=== PATIENT | female | born 1960 | race Caucasian/White ===

== ENCOUNTER → 2019-01-18 | Outpatient (REF) | payer BC ==
[2019-01-18 19:07] LABS: AMYLASE 44 U/L (25-115); LIPASE 169 U/L (73-393)
[2019-01-18 19:19] LABS: H PYLORI QUALITATIVE IgG DETECTED (NEGATIVE)
== END ==
LOC: M LAB REF 17:40
PROVIDERS: ATTEND Nurse Practitioner Adult Health
DX: R10.13 Epigastric pain (principal)

== ENCOUNTER → 2019-03-14 | Outpatient (CLI) | payer BC ==
[2019-03-14 17:01] LABS: FOLLICLE STIMULATING HORMONE 50.3 mIU/mL
== END ==
LOC: M LAB 16:02
PROVIDERS: ATTEND Obstetrics & Gynecology
DX: N92.6 Irregular menstruation, unspecified (principal)

== ENCOUNTER 2019-05-09 09:58 | Day surgery (SDC) | payer BC ==
[~2019-05-09] VITALS: Ht 157.5 cm; Wt 66.3 kg
[~2019-05-09 09:58] MED LIST: ALBU83IN INH; LR 1,000 ML IV ONE
[2019-05-09] MEDS ORDERED: dexameTHASONE 4 MG/ML 1ML VIAL (J1100) As Ordered ONE (11:11)
[2019-05-09] MEDS ORDERED: ONDANSETRON 4MG/2ML VIAL (J2405) As Ordered ONE (11:11)
[2019-05-09] MEDS ORDERED: PROPOFOL 200 MG/20 ML VIAL As Ordered ONE (11:11)
[2019-05-09] MEDS ORDERED: LIDOCAINE 2% INJ 100 MG/5 ML SDV (FOR ANES.) As Ordered ONE (11:11)
[2019-05-09] MEDS ORDERED: KETOROLAC 60 MG/2 ML VIAL (J1885) As Ordered ONE (11:12)
[2019-05-09] MEDS ORDERED: MIDAZOLAM INJ 2 MG/2 ML VIAL (J2250) As Ordered ONE (11:15)
[2019-05-09] MEDS ORDERED: fentaNYL 100 MCG/2 ML INJECTION (J3010) As Ordered ONE (11:15)
[2019-05-09] MEDS ORDERED: SCOPOLAMINE 1MG TRANSDERMAL PATCH As Ordered ONE (13:15)
[2019-05-09] MEDS ORDERED: SCOPOLAMINE 1MG TRANSDERMAL PATCH TOP ONE (13:30)
[2019-05-09] MEDS ORDERED: LR 1,000 ML IV ONE (13:30)
[2019-05-09] MEDS ORDERED: fentaNYL 250 MCG/5 ML INJECTION (J3010) As Ordered ONE (13:40)
[2019-05-09] MEDS ORDERED: fentaNYL 100 MCG/2 ML INJECTION (J3010) IV PRN (14:15)
[2019-05-09] MEDS ORDERED: IBUPROFEN 600 MG TAB PO PRN (14:15)
[2019-05-09] MEDS ORDERED: ONDANSETRON 4MG/2ML VIAL (J2405) IV PRN (14:15)
[2019-05-09] MEDS ORDERED: LR 1,000 ML IV SCH ×2 (14:15)
[2019-05-09 15:45] VITALS: BP 164/74
--- NOTE | 2019-05-10 11:20 | RO ---
DATE OF SURGERY: 05/09/2019 PREOPERATIVE DIAGNOSES/INDICATION FOR SURGERY: Postmenopausal bleeding and abnormal sonogram. POSTOPERATIVE DIAGNOSES: Postmenopausal bleeding and abnormal sonogram. PROCEDURE: Dilation and curettage (D and C), hysteroscopy, MyoSure resection. We took all of that out. SURGEON: Ghazal Langley MD POWER ELECTRONICS RESEARCH ENGINEER: None. ANESTHESIA: Laryngeal mask airway (LMA). FINDINGS: She just had minimal overgrowth posterior endometrium. DESCRIPTION OF PROCEDURE: Brief description of procedure and findings: Lilly was brought to the operating room, where sufficient LMA anesthesia was induced. She was prepped, draped, and positioned in the usual sterile fashion, and the cervix grasped with single-tooth tenaculum. Thus, uterus would be accessible from below should that become necessary in the future. Of course, the bladder had already been emptied. The cervix was dilated in order to allow introduction of the MyoSure hysteroscope, and the endometrial cavity visualized. As noted on the operative photos, there were not any large polyps, but there was sort of a broad-based, slight overgrowth of the endometrium posteriorly, and of course, in this 58-year-old individual, we do not expect any endometrial growth, so we did use the MyoSure LITE to just resect all of that and, of course, to do a 360 degree sampling of the endometrium. Curettage was carried out after this with normal uterine cry noted. Then, the procedure was then ended. ESTIMATED BLOOD LOSS FOR PROCEDURE: 3 mL. FLUID REPLACEMENT: Was crystalloid. COMPLICATIONS: None. CONDITION AND DISPOSITION: Lilly tolerated the procedure well and was recovering in the recovery room in good condition.
== END 2019-05-09 15:50 | disposition home or self-care (01) ==
LOC: M SDC 09:58
PROVIDERS: ATTEND Obstetrics & Gynecology
DX: N95.0 Postmenopausal bleeding (principal); J45.909 Unspecified asthma, uncomplicated; Z79.51 Long term (current) use of inhaled steroids; Z91.09 Other allergy status, other than to drugs and biological substances
CPT/HCPCS: 58558; 88304; J1100; J1885; J2250; J2405; J3010

== ENCOUNTER 2019-08-29 08:23 | Day surgery (SDC) | payer BC ==
[~2019-08-29] VITALS: Ht 160 cm; Wt 68.9 kg
[2019-08-29] VITALS (7 sets, daily range): BP systolic 119–148; BP diastolic 63–74
[2019-08-29] MEDS: LR 1,000 ML IV SCH ×2 (03:00→18:34)
[~2019-08-29 08:23] MED LIST changes: +MIDAZOLAM INJ 2 MG/2 ML VIAL (J2250) IV SCH; +VENTAER INH; +ceFAZolin SOD 2 GM in IV 1 EA IV ONE; +fentaNYL 100 MCG/2 ML INJECTION (J3010) IV SCH
[2019-08-29] MEDS ORDERED: PROPOFOL 200 MG/20 ML VIAL As Ordered ONE ×3 (08:28→11:21)
[2019-08-29] MEDS ORDERED: ROCURONIUM BROMIDE 50 MG/5 ML VIAL As Ordered ONE (08:28)
[2019-08-29] MEDS ORDERED: LIDOCAINE 2% INJ 100 MG/5 ML SDV (FOR ANES.) As Ordered ONE ×2 (08:29→09:47)
[2019-08-29] MEDS ORDERED: ONDANSETRON 4MG/2ML VIAL (J2405) As Ordered ONE (08:29)
[2019-08-29] MEDS ORDERED: SUGAMMADEX SODIUM 500 MG/5 ML VIAL (BRIDION) As Ordered ONE (08:29)
[2019-08-29] MEDS ORDERED: KETOROLAC 60 MG/2 ML VIAL (J1885) As Ordered ONE (08:29)
[2019-08-29] MEDS ORDERED: dexameTHASONE 4 MG/ML 1ML VIAL (J1100) As Ordered ONE (08:29)
[2019-08-29] MEDS ORDERED: MIDAZOLAM INJ 2 MG/2 ML VIAL (J2250) As Ordered ONE (08:30)
[2019-08-29] MEDS ORDERED: fentaNYL 100 MCG/2 ML INJECTION (J3010) As Ordered ONE (08:30)
[2019-08-29] MEDS ORDERED: KETAMINE HCL 200 MG/20 ML VIAL As Ordered ONE (08:30)
[2019-08-29] MEDS ORDERED: HYDROmorphone HCL 2 MG/ML 1ML VIAL (J1170) As Ordered ONE (08:43)
[2019-08-29] MEDS ORDERED: ACETAMINOPHEN 1000MG 100ML IV BTL (OFIRMEV) (J0131 PER 10MG) As Ordered ONE (08:50)
[2019-08-29 09:02] LABS: HEMATOCRIT 42.4 % (36.0-47.0); HEMOGLOBIN 13.7 g/dl (12.0-15.5); MEAN CORPUSCULAR HEMOGLOBIN 29.5 pg (27.0-33.0); MEAN CORPUSCULAR HGB CONC 32.3 g/dl (32.0-36.5); MEAN CORPUSCULAR VOLUME 91.4 fl (80.0-96.0); PLATELET COUNT, AUTOMATED 334 10^3/uL (150-450); RED BLOOD COUNT 4.64 10^6/uL (4.00-5.40); WHITE BLOOD COUNT 6.8 10^3/uL (4.0-10.0)
[2019-08-29] MEDS ORDERED: SCOPOLAMINE 1MG TRANSDERMAL PATCH As Ordered ONE (09:42)
[2019-08-29] MEDS ORDERED: PROPOFOL 500 MG/50 ML VIAL As Ordered ONE (09:47)
[2019-08-29] MEDS ORDERED: SCOPOLAMINE 1MG TRANSDERMAL PATCH TOP ONE (10:00)
[2019-08-29] MEDS ORDERED: MORPHINE 1MG/ML IN 0.9% NACL 100ML IV BAG As Ordered ONE (12:26)
[2019-08-29] MEDS ORDERED: IBUPROFEN 600 MG TAB PO PRN (12:30)
[2019-08-29] MEDS ORDERED: NALBUPHINE HCL 10 MG/ML AMP (J2300) IV PRN (12:30)
[2019-08-29] MEDS ORDERED: fentaNYL 100 MCG/2 ML INJECTION (J3010) IV PRN (12:30)
[2019-08-29] MEDS ORDERED: diphenhydrAMINE INJ 50MG/ML VIAL (J1200) IV PRN (12:30)
[2019-08-29] MEDS ORDERED: LR 1,000 ML IV SCH (12:30)
[2019-08-29] MEDS ORDERED: MORPHINE 1MG/ML IN 0.9% NACL 100ML IV BAG IV PRN (12:30)
[2019-08-29] MEDS ORDERED: NALOXONE INJ 0.4 MG/1 ML VIAL (J2310) IV PRN (12:30)
[2019-08-29] MEDS ORDERED: ONDANSETRON 4MG/2ML VIAL (J2405) IV PRN (12:30)
[2019-08-29] MEDS ORDERED: EPIDURAL/PCA KEYS XX PRN (12:30)
[2019-08-29] MEDS ORDERED: ALBUTEROL 90 MCG/ACT 8GM HFA INHALER INH PRN (12:30)
--- NOTE | 2019-08-29 15:38 | RO ---
DATE OF SURGERY: 08/29/2019 PREOPERATIVE DIAGNOSES/INDICATION FOR SURGERY: Pain, bleeding, and dyspareunia. POSTOPERATIVE DIAGNOSES: Pain, bleeding, and dyspareunia, with fibroid found. PROCEDURE: Laparoscopic-assisted vaginal hysterectomy, bilateral salpingo-oophorectomy (BSO). SURGEON: Ghazal Langley MD CNC SERVICE TECHNICIAN: None. ANESTHESIA: General endotracheal anesthesia. DESCRIPTION OF PROCEDURE: Brief description of procedure and findings: Lilly was brought to the operating room, where sufficient general endotracheal anesthesia was induced. She was prepped, draped, and positioned in the usual sterile fashion with the uterus sounded to 8 and the uterine manipulator placed, and the Light with the ability to backfill placed. We then turned our attention to the abdomen, where a semilunar incision was made below the umbilicus, and sharp and blunt dissection continued to the level of the rectus fascia, which was grasped with Jazmín clamps, elevated to the wound, transversely incised under direct visualization and secured with #0 Vicryl suture. The peritoneum was then entered under direct visualization, and the Wendy cannula placed into the peritoneal cavity, under direct visualization in an open laparoscopic technique. The #0 Vicryl tension sutures were used to secure the Wendy and CO2 insufflation was then begun. After adequate CO2 insufflation, the peritoneal cavity was visualized. There were normal, shiny peritoneal surfaces throughout. There was no excrescence, ascites, nor exudate. There were some minor adhesions of the descending colon, but with the cold scissors, we were able to take these down well enough to do the case, and they were not distorting the colon in any way. Using the cold scissors, we just loosened those and then leaned the patient slightly to the right side dependent and Trend and we were thus able to get adequate access to the left infundibulopelvic ligament, which, using the #45 Enseal and the operative port at the scope at the umbilicus, we were able to isolate the infundibulopelvic on the right side, cauterize, and transect it, carefully dissecting with the Enseal bipolar dissector, working our way through the mesentery to the round ligament, being careful to avoid injury to the ureter. We dissected the tube and ovary free as well as the round ligament, and then at the beginning of the dissection of broad ligament, we were able to backfill the Light to be sure that we were well away from bladder with this dissection. We then brought the patient back to left and right level but still in Trendelenburg and were able to isolate, cauterize, and transect the infundibulopelvic ligament on the right side, working our way again through the broad ligament to the round, which we also cauterized and transected and then the superior aspect of the anterior broad ligament. We then used cold scissors to create the bladder flap and, having dissected the broad ligament, the round, the infundibulopelvic, and the bladder flap, we went ahead and turned our attention to the pelvic part of the surgery. The instruments were removed, but the trocar left in place at the umbilicus, and attention was turned to the vagina. Working vaginally with the uterine manipulator removed, we had a single-tooth tenaculum on the anterior-posterior aspect of the cervix, and a circumferential incision was made around the base of the cervix, and the dissection was continued until we had isolated the cardinal ligaments bilaterally. These were clamped, transected, and ligated using the Watson clamp, which was used throughout, the SuperCut scissors, and then #0 Vicryl suture, which was also used throughout. We then clamped, transected, and ligated the uterosacral ligaments, which were secured for later attachment to the cuff, and entered the peritoneal cavity posteriorly and then switched out the weighted speculum for the Viji speculum. We then continued the dissection anteriorly to meet up with our previous anterior dissection that we had done laparoscopically and isolated the uterine vasculature bilaterally, carefully clamping, transecting, and ligating in a sequential fashion around the lateral aspect of the uterus until the we joined up with our previous dissection and delivered the uterus with the attached ovaries and tubes. Then evaluated our pedicles, which were dry, of course, angle stitches, re-securing the uterosacrals to the cuff, and then closed the cuff in a running lock stitch with #0 Vicryl with good approximation and hemostasis achieved at each layer. Then, since we had good hemostasis, we went ahead with new gloves and removed the Wendy from the umbilicus, used the retention sutures to close the fascial layer, and then closed the skin in #3-0 Vicryl in a subcuticular stitch with good approximation and hemostasis at both layers, and dry, sterile dressing was then applied. ESTIMATED BLOOD LOSS FOR PROCEDURE: About 70 mL. FLUID REPLACEMENT: Was crystalloid. COMPLICATIONS: None. CONDITION/DISPOSITION: Lilly tolerated the procedure well and was recovering in the recovery room in good condition.
[2019-08-30] VITALS: BP 133/63
[2019-08-30 04:00] VITALS: BP 130/65
[2019-08-30] MEDS ORDERED: NORCO, ANEXSIA 5/325MG TABLET (HYDROcodone/ACETAMINOPHEN) PO PRN (06:00)
[2019-08-30 06:46] LABS: HEMATOCRIT 32.2 % (36.0-47.0); MEAN CORPUSCULAR HEMOGLOBIN 29.8 pg (27.0-33.0); MEAN CORPUSCULAR HGB CONC 33.2 g/dl (32.0-36.5); MEAN CORPUSCULAR VOLUME 89.7 fl (80.0-96.0); PLATELET COUNT, AUTOMATED 250 10^3/uL (150-450); RED BLOOD COUNT 3.59 10^6/uL (4.00-5.40); WHITE BLOOD COUNT 11.7 10^3/uL (4.0-10.0)
[2019-08-30] MEDS: LR 1,000 ML IV SCH (06:52)
[2019-08-30 06:59] LABS: HEMOGLOBIN 10.7 g/dl (12.0-15.5)
[2019-08-30 08:00] VITALS: BP 126/63
== END 2019-08-30 10:15 | disposition home or self-care (01) ==
LOC: M SDC 08:23 → M PED 13:03 → M SDC 08-30 10:15
PROVIDERS: ATTEND Obstetrics & Gynecology
DX: N93.9 Abnormal uterine and vaginal bleeding, unspecified (principal); N94.10 Unspecified dyspareunia; D25.1 Intramural leiomyoma of uterus; R73.09 Other abnormal glucose; E55.9 Vitamin D deficiency, unspecified; D18.09 Hemangioma of other sites; M12.9 Arthropathy, unspecified; J45.909 Unspecified asthma, uncomplicated; R06.83 Snoring; M50.220 Other cervical disc displacement, mid-cervical region, unspecified level; Z91.09 Other allergy status, other than to drugs and biological substances; Z91.018 Allergy to other foods; Z78.0 Asymptomatic menopausal state; Z80.0 Family history of malignant neoplasm of digestive organs
CPT/HCPCS: 36415; 58552; 85027; 86850; 86900; 86901; 88307; J0131; J0690; J1100; J1170; J1885; J2250; J2405; J3010

== ENCOUNTER 2020-01-07 11:51 | Emergency (ER) | payer BC ==
[~2020-01-07] VITALS: Ht 157.5 cm; Wt 67.3 kg
[~2020-01-07 11:51] MED LIST changes: -LR 1,000 ML IV ONE; -MIDAZOLAM INJ 2 MG/2 ML VIAL (J2250) IV SCH; -ceFAZolin SOD 2 GM in IV 1 EA IV ONE; -fentaNYL 100 MCG/2 ML INJECTION (J3010) IV SCH
[2020-01-07] MEDS ORDERED: IBUP-1022 (11:56)
[2020-01-07] MEDS ORDERED: methocarbamoL 500 MG TAB PO ONE (12:30)
[2020-01-07] MEDS ORDERED: KETOROLAC 60 MG/2 ML VIAL (J1885) IM ONE (13:00)
--- NOTE | 2020-01-07 13:08 | REP ---
Clinical: Trauma. Injury. Technique: Frontal view of the pelvis with neutral and frog lateral views of the right hip. Findings: Generalized age-related changes to the pelvis and hips. No acute fracture or dislocation. Surrounding soft tissues are unremarkable. Impression: No acute fracture or dislocation. Electronically Signed by Mark Chua MD 01/07/2020 01:00 P
--- NOTE | 2020-01-07 13:10 | REP ---
Clinical: Injury. Technique: AP, lateral, bilateral oblique and coned-down views of the lumbosacral spine. Findings: Alignment and lordosis maintained. No acute fracture / compression injury or subluxation. Moderate degenerative changes primarily involving L4-5 and L5-S1 including endplate sclerosis, disc space narrowing, mild spurring and hypertrophic facet changes. Mild changes noted throughout the remainder of the lumbar spine with minimal anterior spurring and endplate sclerosis. Impression: Mild/moderate multilevel degenerative changes primarily involving L4-5 and L5-S1. No acute fracture / compression injury or subluxation. Electronically Signed by Mark Chua MD 01/07/2020 01:02 P
[2020-01-07 13:14] VITALS: BP 148/67
[2020-01-07] MEDS ORDERED: ROBA750T4 PO (13:42)
[2020-01-07] MEDS ORDERED: KETO10TAB PO (13:42)
== END 2020-01-07 14:03 | disposition home or self-care (01) ==
LOC: M ED 11:51
DX: S39.012A Strain of muscle, fascia and tendon of lower back, initial encounter (principal); X58.XXXA Exposure to other specified factors, initial encounter; Y92.89 Other specified places as the place of occurrence of the external cause; J45.909 Unspecified asthma, uncomplicated; Z78.0 Asymptomatic menopausal state
CPT/HCPCS: 72110; 73502; 96372; 99283; J1885

== ENCOUNTER 2020-03-18 11:41 | Emergency (ER) | payer BC ==
[~2020-03-18] VITALS: Ht 157.5 cm; Wt 67.2 kg
[~2020-03-18 11:41] MED LIST changes: +IBUP-1022; +KETO10TAB PO; +ROBA750T4 PO
[2020-03-18] MEDS ORDERED: ACETAMINOPHEN 325 MG TAB PO ONE (12:15)
[2020-03-18 12:51] LABS: BASO # 0.1 10^3/uL (0.0-0.2); BASO % 0.9 % (0.0-1.0); EOS # 0.6 10^3/uL (0.0-0.5); EOS % 9.2 % (0.0-3.0); HEMATOCRIT 39.2 % (36.0-47.0); HEMOGLOBIN 12.8 g/dl (12.0-15.5); LYMPH # 2.1 10^3/uL (1.5-5.0); LYMPH % 31.3 % (24.0-44.0); MEAN CORPUSCULAR HEMOGLOBIN 29.1 pg (27.0-33.0); MEAN CORPUSCULAR HGB CONC 32.7 g/dl (32.0-36.5); MEAN CORPUSCULAR VOLUME 89.1 fl (80.0-96.0); MONO # 0.6 10^3/uL (0.0-0.8); MONO % 8.5 % (0.0-5.0); NEUTROPHILS # 3.4 10^3/uL (1.5-8.5); PLATELET COUNT, AUTOMATED 337 10^3/uL (150-450); WHITE BLOOD COUNT 6.7 10^3/uL (4.0-10.0)
[2020-03-18 13:00] VITALS: BP 173/94
--- NOTE | 2020-03-18 13:10 | REPVR ---
PROCEDURE INFORMATION: Exam: CT Head Without Contrast Exam date and time: 03/18/2020 12:28 PM Age: 59 years old Clinical indication: Pain; Headache not specified; Additional info: ALEXIS TECHNIQUE: Imaging protocol: Computed tomography of the head without contrast. Radiation optimization: All CT scans at this facility use at least one of these dose optimization techniques: automated exposure control; mA and/or kV adjustment per patient size (includes targeted exams where dose is matched to clinical indication); or iterative reconstruction. COMPARISON: No relevant prior studies available. FINDINGS: Brain: No hemorrhage. Unremarkable white matter for the patient's age. No mass effect. No evolving territorial infarct. Ventricles: No ventriculomegaly. Bones/joints: Unremarkable. No acute fracture. Sinuses: Visualized sinuses are unremarkable. No fluid levels. Mastoid air cells: Visualized mastoid air cells are well aerated. Soft tissues: Unremarkable. IMPRESSION: No acute intracranial abnormality seen. Electronically signed by: Beronica Robb On 03/18/2020 13:09:56 PM
[2020-03-18 13:16] LABS: ALBUMIN 4.2 GM/DL (3.2-5.2); ALT/SGPT 24 U/L (12-78); BILIRUBIN,DIRECT 0.1 MG/DL (0.0-0.2); BILIRUBIN,TOTAL 0.4 MG/DL (0.2-1.0); CK-MB VALUE MASS < 1.0 NG/ML (<3.6); CPK CREATINE PHOSPHOKINASE 62 U/L (26-192); FREE T4 1.25 NG/DL (0.76-1.46); MB/CK RELATIVE INDEX 1.61 (< OR =4); THYROID STIMULATING HORMONE 0.858 uIU/ML (0.358-3.740); TOTAL PROTEIN 7.4 GM/DL (6.4-8.2); TROPONIN I < 0.02 NG/ML (< 0.10)
--- NOTE | 2020-03-18 13:22 | REP ---
CHEST: Single view. There is no evidence of acute infiltrate. No pleural effusion is seen. The heart is normal in size. The mediastinal silhouette is unremarkable. The visualized osseous structures are intact. IMPRESSION: No acute pulmonary disease. Electronically Signed by Serge Allen MD 03/19/2020 07:06 P
[2020-03-18 13:26] LABS: ERYTHROCYTE SEDIMENTATION RATE 10 mm/hr (0-30)
[2020-03-18] MEDS ORDERED: ISOVUE-370 76% 100ML VIAL As Ordered ONE (13:27)
--- NOTE | 2020-03-18 14:12 | REP ---
REASON FOR EXAM: Left-sided chest pain. COMPARISON EXAM: None. CONTRAST: 100 mL Isovue-370. There is excellent visualization of the pulmonary arterial vasculature. There are no focal filling defects present that would be considered consistent with pulmonary emboli. There are no pleural or pericardial effusions. There is no mediastinal or hilar adenopathy. The imaged upper abdomen and imaged osseous structures are within normal limits. Evaluation of the lung klein shows a 7-mm sized nodule in the superior segment of the left lower lobe abutting the major fissure. No other abnormal nodules, masses, or opacities are present. IMPRESSION: 1. There is no evidence of a pulmonary embolus. 2. Single pulmonary nodule left lung, as described above. According to the revised Fleischner Society criteria, this lesion represents a category 4A lesion for which a 3-month followup chest CT is recommended. Electronically Signed by Javier Saunders DO 03/18/2020 03:22 P
[2020-03-18 15:35] LABS: CK-MB VALUE MASS < 1.0 NG/ML (<3.6); CPK CREATINE PHOSPHOKINASE 56 U/L (26-192); MB/CK RELATIVE INDEX 1.79 (< OR =4); TROPONIN I < 0.02 NG/ML (< 0.10)
[2020-03-18 15:46] VITALS: BP 128/69
[2020-03-18] MEDS ORDERED: LISI10TA22 PO (15:51)
--- NOTE | 2020-03-18 18:47 | ECGEPIP ---
[facility] - ED Test Date: 2020-03-18 Pat Name: KELLE DEL ANGEL Department: Room: - Gender: Female Personal Counselor: aguilar SAWYERB: 1960 Requested By: Ankush Osorio Order Number: [id number] Reading MD: Ankush Osorio Measurements Intervals Leary Rate: 61 P: 30 AK: 152 QRS: 15 QRSD: 98 T: 37 QT: 414 QTc: 420 Interpretive Statements SINUS RHYTHM NONSPECIFIC ST T WAVE CHANGES NO PRIOR ECG FOR COMPARISON Electronically Signed on 03-18-2020 18:47:33 EDT by Ankush Osorio
--- NOTE | 2020-03-18 19:21 | ECGEPIP ---
[facility] - ED Test Date: 2020-03-18 Pat Name: KELLE DEL ANGEL Department: Room: - Gender: Female Melter Operator: aguilar SAWYERB: 1960 Requested By: Ankush Osorio Order Number: [id number] Reading MD: Ankush Osorio Measurements Intervals Woodrow Rate: 55 P: 49 VT: 181 QRS: 19 QRSD: 84 T: 41 QT: 415 QTc: 399 Interpretive Statements SINUS BRADYCARDIA DELAYED R WAVE PROGRESSION NONSPECIFIC ST T WAVE CHANGES CW 03/18/[address] T WAVE CHANGES Electronically Signed on 03-18-2020 19:21:33 EDT by Ankush Osorio
--- NOTE | 2020-03-20 14:08 | ED PDOC ---
Post-Departure Follow-Up dr muller faxed formal report of cta chest for fu Ankush Flores MD Mar 20, 2020 14:08
== END 2020-03-18 16:14 | disposition home or self-care (01) ==
LOC: M ED 11:41
DX: I10 Essential (primary) hypertension (principal); R91.1 Solitary pulmonary nodule; R07.9 Chest pain, unspecified; R00.1 Bradycardia, unspecified; Z87.891 Personal history of nicotine dependence; Z91.018 Allergy to other foods; J30.89 Other allergic rhinitis
CPT/HCPCS: 36415; 70450; 71045; 71275; 80047; 80076; 82375; 82550; 82553; 84439; 84443; 84484; 85025; 85652; 93005; 93041; 94760; 99285; Q9967

== ENCOUNTER → 2020-04-28 | Outpatient (CLI) | payer BC ==
[~2020-04-28] MED LIST changes: +LISI10TA4 PO
--- NOTE | 2020-04-28 14:58 | REPVR ---
PROCEDURE INFORMATION: Exam: MR Cervical Spine Without Contrast Exam date and time: 04/28/2020 10:51 AM Age: 59 years old Clinical indication: Condition or disease; Disc degeneration; Vertebra area not specified; Additional info: Cervical ddd ? hnp vs stenosis TECHNIQUE: Imaging protocol: Multiplanar magnetic resonance images of the cervical spine without contrast. COMPARISON: No relevant prior studies available. FINDINGS: Vertebrae: There is straightening of the midcervical lordosis. Trace 1-2 mm of anterolisthesis of C3 on C4 and C7 on T1, likely degenerative. Trace 1-2 mm of degenerative retrolisthesis of C5 on C6. No acute fracture seen. Spinal cord: Normal signal. No cord compression. There is disc desiccation throughout. Disc height loss and spondylosis is moderate to marked from C4-C5 through C6-C7. Endplate inflammation at C5-C6 and C6-C7 is likely degenerative. C2-C3: Mild facet arthropathy. No stenoses. C3-C4: Mild facet arthropathy. No stenoses. C4-C5: Mild disc osteophyte complex. There is a shallow component of right paracentral soft disc protrusion. Central spinal canal stenosis is mild. Uncovertebral and facet arthropathy causing moderate right and mild left neural foraminal stenoses. C5-C6: Retrolisthesis, disc osteophyte complex and ligamentum flavum buckling causing moderate central spinal canal stenosis. Uncovertebral and facet arthropathy causing moderate left and mild to moderate right neural foraminal stenoses. C6-C7: Disc osteophyte complex and ligamentum flavum buckling causing mild central spinal canal stenosis. Uncovertebral and facet arthropathy causing severe left and [id number] right neural foraminal stenoses. C7-T1: Uncovertebral and facet arthropathy, in particular left facet arthropathy. The central spinal canal remains patent. No significant foraminal stenoses. Marrow: 3 mm STIR hyperintense, T1 hypointense lesion in the right aspect of T1, nonspecific, potentially a bone cyst or atypical hemangioma. A few small cystic foci in C6, potentially degenerative. Vertebral arteries: Expected flow voids in the vertebral arteries. Soft tissues: Left periarticular soft tissue edema at C7-T1, probably degenerative related to advanced facet arthropathy. IMPRESSION: 1. Advanced degenerative disc disease from C4-C5 through C6-C7. 2. Mild central spinal canal stenosis at C4-C5. Moderate right neural foraminal stenosis. 3. Moderate central spinal canal stenosis at C5-C6. Moderate left and [id number] right neural foraminal stenoses. 4. Mild central spinal canal stenosis at C6-C7. Severe left and [id number] right neural foraminal stenoses. 5. Severe left facet arthropathy at C7-T1 with periarticular soft tissue edema. Electronically signed by: Beronica Robb On 04/28/2020 14:57:50 PM
== END ==
LOC: M RAD 10:05
PROVIDERS: ATTEND Physician Assistant
DX: M50.323 Other cervical disc degeneration at C6-C7 level (principal); M50.322 Other cervical disc degeneration at C5-C6 level; M25.78 Osteophyte, vertebrae; M48.02 Spinal stenosis, cervical region

== ENCOUNTER → 2020-12-25 | Outpatient (CLI) | payer BC ==
[~2020-12-25] MED LIST changes: +LISI10TA22 PO; -LISI10TA4 PO
--- NOTE | 2020-12-25 13:44 | REP ---
INDICATION: SOLITARY PUMONARY NODULE COMPARISON: None TECHNIQUE: Axial noncontrast images from the thoracic inlet to the upper abdomen with coronal and sagittal reformations. This CT examination was performed using the following dose reduction techniques: Automated exposure control, adjustment of mA and/or kv according to the patient's size, and use of iterative reconstruction technique. FINDINGS: Bilateral lung klein are relatively well aerated and symmetric. Calcified granuloma and chronic changes consistent with prior granulomatous disease. 7 mm perifissural nodule density inseparable from the left major fissure remains stable. No consolidation, suspicious nodule or mass lesion otherwise appreciated. No pleural effusion. No pneumothorax. Tracheobronchial tree is patent. Stable mediastinal lymph nodes noted. Thoracic aorta, pulmonary vasculature, and heart/pericardium are within normal limits. Musculoskeletal structures without acute osseous abnormality. IMPRESSION: 1. Evidence for prior granulomatous disease. 2. Stable 7 mm noncalcified perifissural nodule along the left major fissure. Consider 12 month follow-up for high risk patient category. <Electronically signed by Mark Chua > 12/25/20 [id number]
== END ==
LOC: M RAD 13:11
PROVIDERS: ATTEND Internal Medicine Pulmonary Disease
DX: R91.1 Solitary pulmonary nodule (principal); L92.9 Granulomatous disorder of the skin and subcutaneous tissue, unspecified

== ENCOUNTER → 2021-11-09 | Outpatient (REF) | payer BC ==
[2021-11-09 17:32] LABS: APPEARANCE, URINE CLOUDY (CLEAR); BACTERIA, URINE AUTO NEGATIVE (NEGATIVE); BILIRUBIN, URINE AUTO NEGATIVE (NEGATIVE); BLOOD, URINE BLOOD NEGATIVE (NEGATIVE); CALCIUM OXALATE CRYSTALS LARGE; COLOR, URINE YELLOW (YELLOW); GLUCOSE, URINE (UA) AUTO NEGATIVE (NEGATIVE); KETONE, URINE AUTO TRACE mg/dL (NEGATIVE); LEUKOCYTE ESTERASE, URINE AUTO 1+ (NEGATIVE); MUCUS, URINE SMALL (NEGATIVE); NITRITE, URINE AUTO NEGATIVE (NEGATIVE); PROTEIN, URINE AUTO 1+ mg/dL (NEGATIVE); RBC, URINE AUTO 1 /HPF (0-3); SPECIFIC GRAVITY URINE AUTO 1.029 (1.002-1.035); SQUAMOUS EPITHELIAL CELL UR AU 3 /HPF (0-6); WBC, URINE AUTO 22 /HPF (0-3)
== END ==
LOC: M LAB REF 16:21
PROVIDERS: ATTEND Physician Assistant Medical
DX: R30.0 Dysuria (principal)

== ENCOUNTER → 2022-03-15 | Outpatient (CLI) | payer BC ==
[~2022-03-15] MED LIST changes: +ALBU2.5V10 INH; -ALBU83IN INH
== END ==
LOC: M PLAIMG 08:35
PROVIDERS: ATTEND Internal Medicine Pulmonary Disease
DX: R91.1 Solitary pulmonary nodule (principal)

== ENCOUNTER → 2022-07-24 | Outpatient (CLI) | payer BC ==
[~2022-07-24] MED LIST changes: +ATRO0.063 INH; +VITAD400CA PO
== END ==
LOC: M LABSMTC 09:59
PROVIDERS: ATTEND Anesthesiology
DX: Z01.812 Encounter for preprocedural laboratory examination (principal); Z20.822 Contact with and (suspected) exposure to COVID-19

== ENCOUNTER 2022-07-29 07:51 | Day surgery (SDC) | payer BC ==
[~2022-07-29] VITALS: Ht 160 cm; Wt 363.3 kg
[~2022-07-29 07:51] MED LIST changes: +NS 1,000 ML IV ONE; +SIMETHICONE 40MG/0.6ML DROPS 30ML As Ordered ONE; +propofoL 500 MG/50 ML VIAL As Ordered ONE
[2022-07-29 09:25] VITALS: BP 127/82
== END 2022-07-29 09:45 | disposition home or self-care (01) ==
LOC: M OPP 07:51
PROVIDERS: ATTEND Internal Medicine Gastroenterology
DX: Z12.11 Encounter for screening for malignant neoplasm of colon (principal); Z80.0 Family history of malignant neoplasm of digestive organs; D12.8 Benign neoplasm of rectum; K64.4 Residual hemorrhoidal skin tags; K64.8 Other hemorrhoids; K57.30 Diverticulosis of large intestine without perforation or abscess without bleeding; Z79.51 Long term (current) use of inhaled steroids; Z79.899 Other long term (current) drug therapy; Z91.018 Allergy to other foods; I10 Essential (primary) hypertension; J45.909 Unspecified asthma, uncomplicated; Z87.891 Personal history of nicotine dependence; Z80.1 Family history of malignant neoplasm of trachea, bronchus and lung

== ENCOUNTER → 2022-12-12 | Outpatient (CLI) | payer BC ==
[~2022-12-12] MED LIST changes: -NS 1,000 ML IV ONE; -SIMETHICONE 40MG/0.6ML DROPS 30ML As Ordered ONE; -propofoL 500 MG/50 ML VIAL As Ordered ONE
== END ==
LOC: M WHC 15:49
PROVIDERS: ATTEND Nurse Practitioner Adult Health
DX: Z12.31 Encounter for screening mammogram for malignant neoplasm of breast (principal)

== ENCOUNTER → 2023-05-22 | Outpatient (REF) | payer BC | LOC: M LAB REF 16:27 | PROVIDERS: ATTEND Nurse Practitioner Adult Health | DX: R53.83 Other fatigue (principal) ==

== ENCOUNTER → 2024-11-06 | Outpatient (REF) | payer BC, MEDICARE, OTHER ==
[2024-11-06 14:10] LABS: APPEARANCE, URINE CLOUDY (CLEAR); BACTERIA, URINE AUTO NEGATIVE (NEGATIVE); BILIRUBIN, URINE AUTO NEGATIVE (NEGATIVE); BLOOD, URINE BLOOD NEGATIVE (NEGATIVE); CALCIUM OXALATE CRYSTALS MODERATE; COLOR, URINE AMBER (YELLOW); GLUCOSE, URINE (UA) AUTO NEGATIVE (NEGATIVE); KETONE, URINE AUTO TRACE mg/dL (NEGATIVE); LEUKOCYTE ESTERASE, URINE AUTO 3+ (NEGATIVE); MUCUS, URINE SMALL (NEGATIVE); NITRITE, URINE AUTO NEGATIVE (NEGATIVE); PROTEIN, URINE AUTO 1+ mg/dL (NEGATIVE); RBC, URINE AUTO 28 /HPF (0-3); SPECIFIC GRAVITY URINE AUTO 1.026 (1.002-1.035); SQUAMOUS EPITHELIAL CELL UR AU 1 /HPF (0-6); WBC, URINE AUTO 81 /HPF (0-3)
== END ==
LOC: M LAB REF 12:48
PROVIDERS: ATTEND Physician Assistant
DX: N39.0 Urinary tract infection, site not specified (principal)

== ENCOUNTER → 2025-02-19 | Outpatient (CLI) | payer OTHER | LOC: M WHC 14:54 | PROVIDERS: ATTEND Nurse Practitioner Adult Health | DX: Z12.31 Encounter for screening mammogram for malignant neoplasm of breast (principal); R92.333 Mammographic heterogeneous density, bilateral breasts; N63.21 Unspecified lump in the left breast, upper outer quadrant ==

== ENCOUNTER → 2025-03-06 | Outpatient (CLI) | payer OTHER | LOC: M WHC 08:00 | PROVIDERS: ATTEND Nurse Practitioner Adult Health | DX: N63.21 Unspecified lump in the left breast, upper outer quadrant (principal) ==

== ENCOUNTER → 2025-04-22 | Outpatient (REF) | payer OTHER ==
[2025-04-22 14:24] LABS: APPEARANCE, URINE CLEAR (CLEAR); BACTERIA, URINE AUTO NEGATIVE (NEGATIVE); BILIRUBIN, URINE AUTO NEGATIVE (NEGATIVE); BLOOD, URINE BLOOD NEGATIVE (NEGATIVE); GLUCOSE, URINE (UA) AUTO NEGATIVE (NEGATIVE); KETONE, URINE AUTO NEGATIVE (NEGATIVE); LEUKOCYTE ESTERASE, URINE AUTO NEGATIVE (NEGATIVE); MUCUS, URINE SMALL (NEGATIVE); NITRITE, URINE AUTO NEGATIVE (NEGATIVE); PROTEIN, URINE AUTO NEGATIVE (NEGATIVE); RBC, URINE AUTO 0 /HPF (0-3); SPECIFIC GRAVITY URINE AUTO 1.016 (1.002-1.035); SQUAMOUS EPITHELIAL CELL UR AU 1 /HPF (0-6); UROBILINOGEN, URINE AUTO 0.2 mg/dL (0.0-2.0); WBC, URINE AUTO 1 /HPF (0-3)
== END ==
LOC: M LAB REF 13:18
PROVIDERS: ATTEND Physician Assistant Medical
DX: N39.0 Urinary tract infection, site not specified (principal)

== ENCOUNTER → 2025-09-10 | Outpatient (CLI) | payer OTHER ==
[~2025-09-10] MED LIST changes: -IBUP-1022; +IBUP600T42
== END ==
LOC: M WHC 12:58
PROVIDERS: ATTEND Nurse Practitioner Adult Health
DX: R92.332 Mammographic heterogeneous density, left breast (principal); R92.2 Inconclusive mammogram
CPT/HCPCS: 76642; 77065; G0279